=== PATIENT | female | born 1995 | race Caucasian/White ===

== ENCOUNTER 2018-01-08 18:05 | Emergency (ER) | payer OTHER ==
[~2018-01-08] VITALS: Ht 157.5 cm; Wt 62.8 kg
[2018-01-08 19:02] LABS: HEMATOCRIT 16.1 % (36.0-46.0); MCH 24.3 PG (29.0-34.0); MCHC 31.1 G/DL (30.0-36.0); MCV 78.2 FL (83-99); PLATELET COUNT 229 K/uL (156-360); RBC DIS.WIDTH-CV 14.4 % (11.8-14.6); RBC DIS.WIDTH-SD 41.6 % (39-53); RED BLOOD COUNT 2.06 M/uL (3.80-5.20)
[2018-01-08 19:07] LABS: APPEARANCE SL.HAZY ((CLEAR)); BILIRUBIN NEGATIVE; BLOOD LARGE; COLOR YELLOW ((YELLOW)); GLUCOSE (STRIP) NEGATIVE; KETONES NEGATIVE; LEUKOCYTES TRACE; NITRITE NEGATIVE; PROTEIN (STRIP) 30; UROBILINOGEN 0.2 MG/DL (0.2-1.0)
[2018-01-08 19:08] LABS: ALBUMIN 3.7 g/dL (3.2-4.8); CHLORIDE 109 mEq/L (99-109); POTASSIUM 3.9 mEq/L (3.7-5.4); SODIUM 139 mEq/L (136-147)
[2018-01-08 19:11] LABS: GLUCOSE 95 mg/dL (70-99); TOTAL PROTEIN 6.3 g/dL (6.4-8.3)
[2018-01-08 19:13] LABS: TOTAL BILIRUBIN 0.4 mg/dL (0.0-1.0)
[2018-01-08 19:14] LABS: ALKALINE PHOSPHATASE 37 IU/L (3-129)
[2018-01-08 19:15] LABS: CREATININE 0.8 mg/dL (0.6-1.3); GFR ESTIMATE (CALCULATED) > 59 mL/min/
[2018-01-08 19:16] LABS: AST (GOT) 10 IU/L (2-34); UREA NITROGEN (BUN) 9 mg/dL (9-23)
[2018-01-08 19:17] LABS: ALT (GPT) 7 IU/L (3-49)
[2018-01-08 19:25] LABS: EPITHELIAL CELLS 2+ /HPF; MUCUS 3+ /LPF; RED BLOOD CELLS TNTC /HPF (0-5)
[2018-01-08 19:25] LABS: QUANTITATIVE HCG < 4.0 MIU/ML
[2018-01-08 19:26] LABS: BACTERIA 2+ /HPF; UCUL ADDED? YES
[2018-01-08 19:31] LABS: BASOPHIL (%) 0.3 % (0-1); EOSINOPHIL (%) 1.8 % (0-5); EOSINOPHIL COUNT 0.1 K/uL (0-0.3); IMMATURE GRANULOCYTE (%) 0.1 % (0.0-0.7); LYMPHOCYTE (%) 35.6 % (15-42); LYMPHOCYTE COUNT 2.4 K/uL (1.0-2.8); MCH 24.3 PG (29.0-34.0); MCHC 31.2 G/DL (30.0-36.0); MONOCYTE (%) 6.4 % (3-12); MONOCYTE COUNT 0.4 K/uL (0-0.8); NEUTROPHIL (%) 55.8 % (45-76); NEUTROPHIL COUNT 3.7 K/uL (1.8-6.4); PLATELET COUNT 227 K/uL (156-360); RBC DIS.WIDTH-CV 14.4 % (11.8-14.6); RBC DIS.WIDTH-SD 41.4 % (39-53); RED BLOOD COUNT 2.18 M/uL (3.80-5.20); WHITE BLOOD COUNT 6.7 K/uL (4.1-10.2)
[2018-01-08 19:34] LABS: HEMOGLOBIN 5.3 G/DL (11.9-15.5)
[2018-01-08 20:24] VITALS: BP 109/70
[2018-01-08 20:45] VITALS: BP 104/67
[2018-01-08] MEDS ORDERED: ZOFRAN ODT4 MG PO (21:25)
[2018-01-08] MEDS ORDERED: LOESTRIN 1/21 TABLET PO (21:25)
[2018-01-08 21:45] VITALS: BP 108/69
[2018-01-08 22:23] VITALS: BP 110/68
[2018-01-08 22:46] VITALS: BP 112/63
[2018-01-08 23:00] VITALS: BP 110/58
[2018-01-09] VITALS: BP 96/67
[2018-01-09 00:33] VITALS: BP 97/65
[2018-01-09 00:53] VITALS: BP 97/65
== END 2018-01-09 00:54 | disposition home or self-care (01) ==
LOC: EME 18:05
PROVIDERS: Physician Assistant
PROC: 30233N1 Transfusion of Nonautologous Red Blood Cells into Peripheral Vein, Percutaneous Approach (ICD-10-PCS; principal; 2018-01-08)
DX: D50.0 Iron deficiency anemia secondary to blood loss (chronic) (principal); N93.8 Other specified abnormal uterine and vaginal bleeding; Z97.5 Presence of (intrauterine) contraceptive device
CPT/HCPCS: 76856; 80053; 81003; 84702; 85025; 85027; 86850; 86900; 86901; 86920; 87086; 99281; 99285; J2405; P9016